=== PATIENT | female | born 1965 | race Caucasian/White ===

== ENCOUNTER 2025-06-27 21:12 | Emergency (ER) | payer OTHER ==
[2025-06-28] MEDS ORDERED: KETOROLAC 30 MG/ML INJ ONE (00:12)
[2025-06-28] MEDS ORDERED: ONDANSETRON 4 MG/2 ML VIAL ONE (00:12)
[2025-06-28] MEDS ORDERED: MORPHINE 4 MG/ML SYR ONE (00:13)
[2025-06-28] MEDS ORDERED: NA CHLORIDE 0.9% 100 ML ONE (00:13)
[2025-06-28] MEDS ORDERED: METHOCARBAMOL 1,000 MG/10 ML VIAL ONE (00:13)
[2025-06-28 00:29] LABS: Anion Gap 9.4 mEq/L (5.0-15.0); BUN Blood Urea Nitrogen 18.0 mg/dL (7-18); Glucose Level 104.0 mg/dL (74-106); Potassium 3.4 mEq/L (3.5-5.1)
[2025-06-28 00:30] LABS: ALT/SGPT 28.0 U/L (13-56); AST/SGOT 17.0 U/L (15-37); Albumin 4.3 g/dL (3.4-5.0); Albumin/Globulin Ratio 0.9 (1.1-1.8); Alkaline Phosphatase 130.0 U/L (45-117); Globulin 5.0 g/dL (2.3-3.5)
[2025-06-28] MEDS ORDERED: NA CHLORIDE 0.9% 1,000 ML ONE (00:39)
--- NOTE | 2025-06-28 01:06 | ER ---
Nurse's Notes [facility] [place] Name: Mindi Santos Age: 60 yrs Sex: Female : 1965 Arrival Date: 06/27/2025 Time: 21:12 Bed IW9 Private MD: Diagnosis: Sprain of unspecified ligament of right ankle, initial encounter;Acute right ankle sprain, acute right foot sprain Presentation: 06/27 21:24 Chief complaint: Patient states: stepped in a ditch and twisted her right ankle. me1 Swelling noted, pain is /. Coronavirus screen: Vaccine status: Patient reports being unvaccinated. Ebola Screen: No symptoms or risks identified at this time. Initial Sepsis Screen: Does the patient meet any 2 criteria? HR > 90 bpm. Does the patient have a suspected source of infection? No. Patient's initial sepsis screen is negative. Risk Assessment: Do you want to hurt yourself or someone else? Patient reports no desire to harm self or others. Onset of symptoms was June 27, 2025 at 19:00. 21:24 Method Of Arrival: Wheelchair me1 21:24 Acuity: JULITO 4 me1 Historical: - Allergies: 21:25 Vancomycin; me1 21:25 CEPHALOSPORINS; me1 21:25 Rifampin; me1 21:25 GADOLINIUM-CONTAINING AGENTS; me1 - PMHx: 21:25 Myocardial infarction; Hypothyroidism; Sleep apnea; me1 - PSHx: 21:25 Coronary artery bypass graft; Operative procedure on knee; right hip surgery; Total me1 abdominal hysterectomy; Cholecystectomy; right shoulder; labrum tear in hip; - Immunization history:: Adult Immunizations up to date. - Infectious Disease History:: Denies. - Social history:: Smoking status: Patient reports the use of cigarette tobacco products, smokes one-half pack cigarettes per day. - Family history:: not pertinent. Screenin/05 00:00 [facility] ED Fall Risk Assessment (Adult) History of falling in the last 3 months, rg5 including since admission No falls in past 3 months (0 pts) Confusion or Disorientation No (0 pts) Intoxicated or Sedated No (0 pts) Impaired Gait No (0 pts) Mobility Assist Device Used No (0 pt) Altered Elimination No (0 pt) Score/Fall Risk Level 0 - 2 = Low Risk Oriented to surroundings, Maintained a safe environment. Abuse screen: Denies threats or abuse. Nutritional screening: No deficits noted. Tuberculosis screening: No symptoms or risk factors identified. Assessment: 06/27 23:35 General: Appears in no apparent distress. Behavior is calm, cooperative, appropriate rg5 for age. Pain: Complains of pain in right foot Quality of pain is described as aching. Neuro: Level of Consciousness is awake, alert, obeys commands, Oriented to person, place, time, situation. Cardiovascular: Denies chest pain. Respiratory: Airway is patent Respiratory effort is even, unlabored. GI: Abdomen is round non-distended. : No signs and/or symptoms were reported regarding the genitourinary system. EENT: No signs and/or symptoms were reported regarding the EENT system. Derm: Skin is intact, Skin is dry, Skin is normal. Musculoskeletal: Circulation, motion, and sensation intact. Range of motion: Swelling present in right foot. 06/28 00:39 Reassessment: Patient states feeling better. Patient states symptoms have improved. rg5 General: Appears Behavior is calm, cooperative, appropriate for age. 01:38 Reassessment: Patient and/or family updated on plan of care and expected duration. Pain rg5 level reassessed. Patient is alert, oriented x 3, equal unlabored respirations, skin warm/dry/pink. Patient states feeling better. Patient states symptoms have improved. Vital Signs: 06/27 21:24 BP 104 / 42; Pulse 104; Resp 19; Temp 98; Pulse Ox 97% ; Weight 96.62 kg; Height 5 ft. me1 5 in. ; Pain 10/10; 06/28 00:10 BP 99 / 82; Pulse 99; Resp 18; Pulse Ox 95% ; Pain 10/10; rg5 01:37 BP 118 / 100; Pulse 100; Resp 18; Pulse Ox 97% ; Pain 0/10; rg5 06/27 21:24 Body Mass Index 35.44 (96.62 kg, 165.1 cm) me1 06/27 21:24 Pain Scale: Adult me1 06/28 00:10 Pain Scale: Adult rg5 01:37 Pain Scale: Adult rg5 Akila Coma Score: 06/29 01:57 Eye Response: spontaneous(4). Motor Response: obeys commands(6). Verbal Response: sp4 oriented(5). Total: 15. ED Course: 06/27 21:19 Patient arrived in ED. gm2 21:25 Triage completed. me1 21:25 Arm band placed on Patient placed in waiting room. me1 21:26 Suhas Marie MD is Attending Physician. sp4 22:47 Foot Right 3 View XRAY In Process Unspecified. EDMS 22:47 Tib Fib Right XRAY In Process Unspecified. EDMS 06/28 00:00 Patient has correct armband on for positive identification. Door closed. Noise rg5 minimized. 00:00 Missed attempt(s): 22 gauge Bleeding controlled, band aid applied, catheter tip intact. oe 00:00 No provider procedures requiring assistance completed. rg5 00:10 Corey Corrigan, TARIQ is Primary Nurse. rg5 00:14 Inserted saline lock: 22 gauge in left forearm, using aseptic technique. Blood oe collected. Flushed with 10 mL NS. 00:15 CMP Sent. oe 01:04 Thanh Rodriguez MD is Referral Physician. sp4 01:38 IV discontinued, bleeding controlled, No redness/swelling at site. Pressure dressing rg5 applied. Administered Medications: 00:10 Drug: Droperidol IVP 2.5 mg IVP once Route: IVP; Site: left forearm; rg5 01:07 Follow up: Response: No adverse reaction rg5 00:12 Drug: morphine IVP or IV 4 mg IVP once over 4 mins Route: IVP; Infused Over: 4 mins; rg5 Site: left forearm; 01:07 Follow up: Response: No adverse reaction; Pain is decreased rg5 00:14 Drug: TORadol - Ketorolac IVP 30 mg IVP once Route: IVP; Site: left forearm; rg5 01:07 Follow up: Response: No adverse reaction; Pain is decreased rg5 00:15 Drug: Methocarbamol IVPB 1 grams IVPB once over 1 hrs; (mix in NS 100 mL) Route: IVPB; rg5 Infused Over: 1 hrs; Site: left forearm; 01:08 Follow up: IV Status: Order to discontinue infusion; IV Intake: 50ml rg5 00:43 Not Given (Patient Refused): ondansetron 4 mg IVP once; over 2 minutes rg5 01:07 Drug: NS 0.9% IV 1000 ml IV at 1 bolus Per protocol; to be given as a bolus over 60 rg5 minutes Route: IV; Rate: 1 bolus; Site: left forearm; 01:38 Follow up: IV Status: Completed infusion; IV Intake: 1000ml rg5 Medication: 01:11 VIS not applicable for this client. rg5 Intake: 01:08 IV: 50ml; Total: 50ml. rg5 01:38 IV: 1000ml; Total: 1050ml. rg5 Outcome: 01:05 Discharge ordered by . sp4 02:00 Patient left the ED. rg5 Signatures: Dispatcher [employer] EDCA Sarthak Vergara Sergey, MD MD sp4 Princess Carroll RN RN me1 Gillian Pinon 2 Corey Corriagn, TARIQ RN rg5 Corrections: (The following items were deleted from the chart) 06/27 21:28 21:25 Allergies: Vancocin; me1 me1
--- NOTE | 2025-06-28 01:06 | EDPHYS ---
Physician Documentation [facility] Name: Mindi Santos Age: 60 yrs Sex: Female : 1965 Arrival Date: 06/27/2025 Time: 21:12 Bed IW9 Private MD: ED Physician Suhas Marie HPI: 06/27 21:27 This 60 yrs old Female presents to ER via Wheelchair with complaints of Ankle sp4 Injury, Ankle Swelling. 06/29 01:57 60-year-old female presents via wheelchair with acute complaint of right ankle injury sp4 and right ankle pain.. Historical: - Allergies: 06/27 21:25 Vancomycin; me1 21:25 CEPHALOSPORINS; me1 21:25 Rifampin; me1 21:25 GADOLINIUM-CONTAINING AGENTS; me1 - PMHx: 21:25 Myocardial infarction; Hypothyroidism; Sleep apnea; me1 - PSHx: 21:25 Coronary artery bypass graft; Operative procedure on knee; right hip surgery; Total me1 abdominal hysterectomy; Cholecystectomy; right shoulder; labrum tear in hip; - Immunization history:: Adult Immunizations up to date. - Infectious Disease History:: Denies. - Social history:: Smoking status: Patient reports the use of cigarette tobacco products, smokes one-half pack cigarettes per day. - Family history:: not pertinent. ROS: 06/29 01:57 Constitutional: Negative for fever, chills, and weight loss, positive for right ankle sp4 injury positive for right ankle pain, positive for right ankle swelling. Positive inability to bear weight All other systems are negative, Exam: 01:57 Constitutional: This is a well developed, well nourished patient who is awake, alert, sp4 and in no acute distress. Head/Face: Normocephalic, atraumatic. Eyes: Pupils equal round and reactive to light, extra-ocular motions intact. Lids and lashes normal. Conjunctiva and sclera are not injected. Cornea within normal limits. Periorbital areas with no swelling, redness, or edema. ENT: Nares patent. No nasal discharge, no septal abnormalities noted. Tympanic membranes are normal and external auditory canals are clear. Oropharynx with no redness, swelling, or masses, exudates, or evidence of obstruction, uvula midline. Mucous membranes moist. Neck: Trachea midline, no thyromegaly or masses palpated, and no cervical lymphadenopathy. Supple, full range of motion without nuchal rigidity, or vertebral point tenderness. Chest/axilla: Normal chest wall appearance and motion. Nontender with no deformity. No lesions are appreciated. Cardiovascular: Regular rate and rhythm with a normal S1 and S2. No gallops, murmurs, or rubs. No pulse deficits. Respiratory: Lungs have equal breath sounds bilaterally, clear to auscultation and percussion. No rales, rhonchi or wheezes noted. No increased work of breathing, no retractions or nasal flaring. Abdomen/GI: Soft, with normal bowel sounds. No distension or tympany. No guarding or rebound. No evidence of tenderness throughout. Back: No spinal tenderness. No costovertebral tenderness. Skin: Warm, dry with normal turgor. Normal color with no rashes, no lesions, and no evidence of cellulitis. MS/ Extremity: Pulses equal, no cyanosis. Neurovascular intact. Positive for right ankle swelling and discoloration consistent with sprain. No significant deformity. Intact peripheral pulses. Neuro: Awake and alert, GCS 15, oriented to person, place, time, and situation. Cranial nerves II-XII grossly intact. Motor strength 5/5 in all extremities. Sensory grossly intact. Psych: Awake, alert, with orientation to person, place and time. Behavior, mood, and affect are within normal limits Vital Signs: 06/27 21:24 BP 104 / 42; Pulse 104; Resp 19; Temp 98; Pulse Ox 97% ; Weight 96.62 kg; Height 5 ft. me1 5 in. ; Pain 10/; 06/28 00:10 BP 99 / 82; Pulse 99; Resp 18; Pulse Ox 95% ; Pain 10/10; rg5 01:37 BP 118 / 100; Pulse 100; Resp 18; Pulse Ox 97% ; Pain 0/10; rg5 06/27 21:24 Body Mass Index 35.44 (96.62 kg, 165.1 cm) al1 06/27 21:24 Pain Scale: Adult me1 06/28 00:10 Pain Scale: Adult rg5 01:37 Pain Scale: Adult rg5 [place] Coma Score: 06/29 01:57 Eye Response: spontaneous(4). Motor Response: obeys commands(6). Verbal Response: sp4 oriented(5). Total: 15. Procedures: 01:57 Splinting: Splint applied to right calf, right Achilles and right heel using Ortho 3D sp4 boot, applied by myself. Examined by me, post splint application: neurovascular intact, 2+ distal pulses palpable, brisk capillary refill noted, Patient tolerated well, . MDM: 06/27 21:34 Medical Screening Exam initiated sp4 06/28 00:43 ED course: EXAM DESCRIPTION: Tib Fib Right CLINICAL HISTORY: Right tib fib pain sp4 COMPARISON: None. FINDINGS: 2 views of the right tibia/fibula. No acute fracture or dislocation. Normal osseous mineralization. Osteoarthritic change of the knee. Postoperative change of the medial aspect of the knee. IMPRESSION: No acute fracture or dislocation. . 00:44 ED course: CLINICAL HISTORY: right foot pain COMPARISON: None. FINDINGS: 3 views of the sp4 right foot. No acute fracture or dislocation. Normal osseous mineralization. Dorsal soft tissue edema. Mild degenerative change of the foot. Plantar calcaneal spur. IMPRESSION: No acute fracture or dislocation. Electronically signed by: Zbigniew Green DO 06/27/2025 11:55 PM. 06/29 01:59 Differential diagnosis: fracture, sprain, penetrating trauma, arthritis, gout. Data sp4 reviewed: vital signs, radiologic studies, plain films. 06/27 21:52 Order name: CMP; Complete Time: 01:03 sp4 06/27 21:52 Order name: Foot Right 3 View XRAY sp4 06/27 21:52 Order name: Tib Fib Right XRAY sp4 06/27 21:52 Order name: IV Saline Lock; Complete Time: 00:15 sp4 06/27 21:52 Order name: Labs collected and sent; Complete Time: 00:15 sp4 Administered Medications: 06/28 00:10 Drug: Droperidol IVP 2.5 mg IVP once Route: IVP; Site: left forearm; rg5 01:07 Follow up: Response: No adverse reaction rg5 00:12 Drug: morphine IVP or IV 4 mg IVP once over 4 mins Route: IVP; Infused Over: 4 mins; rg5 Site: left forearm; 01:07 Follow up: Response: No adverse reaction; Pain is decreased rg5 00:14 Drug: TORadol - Ketorolac IVP 30 mg IVP once Route: IVP; Site: left forearm; rg5 01:07 Follow up: Response: No adverse reaction; Pain is decreased rg5 00:15 Drug: Methocarbamol IVPB 1 grams IVPB once over 1 hrs; (mix in NS 100 mL) Route: IVPB; rg5 Infused Over: 1 hrs; Site: left forearm; 01:08 Follow up: IV Status: Order to discontinue infusion; IV Intake: 50ml rg5 00:43 Not Given (Patient Refused): ondansetron 4 mg IVP once; over 2 minutes rg5 01:07 Drug: NS 0.9% IV 1000 ml IV at 1 bolus Per protocol; to be given as a bolus over 60 rg5 minutes Route: IV; Rate: 1 bolus; Site: left forearm; 01:38 Follow up: IV Status: Completed infusion; IV Intake: 1000ml rg5 Disposition: 01:44 Chart complete. sp4 Disposition Summary: 06/28/25 01:05 Discharge Ordered Notes: We recommend right foot Ortho boot for 4 weeks total Location: Home sp4 Problem: new sp4 Symptoms: have improved sp4 Condition: Stable sp4 Diagnosis - Sprain of unspecified ligament of right ankle, initial encounter sp4 - Acute right ankle sprain, acute right foot sprain sp4 Followup: sp4 - With: Thanh Rodriguez MD - When: 7 - 10 days - Reason: Recheck today's complaints Discharge Instructions: - Discharge Summary Sheet sp4 - Ankle Sprain, [id number] sp4 Forms: - Patient Portal Instructions sp4 Prescriptions: - meloxicam 15 mg Oral tablet - take 1 tablet ORAL route daily PRN pain; 30 tablet; Refills: 0, Product sp4 Selection Permitted - Cyclobenzaprine 10 mg Oral Tablet - take 1 tablet ORAL route every 8 hours As needed; 30 tablet; Refills: 0, sp4 Product Selection Permitted - Tramadol 50 mg Oral tablet - take 1 tablet ORAL route every 8 hours as needed; 30 tablet; Refills: 0, sp4 Product Selection Permitted Addendum: 06/29/2025 02:02 Addendum: EXAM DESCRIPTION: Tib Fib Right CLINICAL HISTORY: Right tib fib pain s p4 COMPARISON: None. FINDINGS: 2 views of the right tibia/fibula. No acute fracture or dislocation. Normal osseous mineralization. Osteoarthritic change of the knee. Postoperative change of the medial aspect of the knee. IMPRESSION: No acute fracture or dislocation.. Signatures: Dispatcher [employer] EDSuhas Taylor MD MD sp4 Princess Carroll RN RN me1 Corey Corrigan RN RN rg5 Corrections: (The following items were deleted from the chart) 06/27 21:28 21:25 Allergies: Vancocin; me1 me1 21:53 21:53 Tib Fib Right+RAD.RAD.BRZ ordered. EDMS EDMS
[2025-06-28 02:47] VITALS: TEMP 98
[2025-06-28 02:50] VITALS: BP 118/100; O2SAT 97
--- NOTE | 2025-06-28 04:42 | RAD REPORT ---
EXAM DESCRIPTION: Foot Right 3 View CLINICAL HISTORY: right foot pain COMPARISON: None. FINDINGS: 3 views of the right foot. No acute fracture or dislocation. Normal osseous minera lization. Dorsal soft tissue edema. Mild degenerative change of the foot. Plantar calcaneal spur. IMPRESSION: No acute fracture or dislocation. Electronically signed by: Zbigniew Green DO 06/27/2025 11:55 PM CDT RP [id number] Due to temporary technical issues with the PACS/[employer] reporting system, reports are being rahul d by the in-house radiologist without review as a courtesy to ensure prompt reporting the interpreting radiologist is fully responsible for the content of the report. Transcribed Date/Time: 06/28/2025 4:42 AM
--- NOTE | 2025-06-28 04:43 | RAD REPORT ---
EXAM DESCRIPTION: Tib Fib Right CLINICAL HISTORY: Right tib fib pain COMPARISON: None. FINDINGS: 2 views of the right tibia/fibula. No acute fracture or dislocation. Normal osseou s mineralization. Osteoarthritic change of the knee. Postoperative change of the medial aspect of the knee. IMPRESSION: No acute fracture or dislocation. Electronically signed by: Zbigniew Green DO 06/27/2025 11:48 PM CDT RP [id number] Due to temporary technical issues with the PACS/[employer] reporting system, reports are being rahul d by the in-house radiologist without review as a courtesy to ensure prompt reporting the interpreting radiologist is fully responsible for the content of the report. Transcribed Date/Time: 06/28/2025 4:43 AM
== END 2025-06-28 02:00 | disposition home or self-care (01) ==
LOC: ER 21:12
DX: S93.401A Sprain of unspecified ligament of right ankle, initial encounter (principal); S93.601A Unspecified sprain of right foot, initial encounter
CPT/HCPCS: 96365; 36415; 80053; 73630; 73590; 96375; 99284; J1885; J2800; J1790; J7030; J2405